=== PATIENT | male | born 1995 | race Caucasian/White ===

== ENCOUNTER 2019-07-30 09:12 | Emergency (ER) | payer BC ==
[~2019-07-30] VITALS: Ht 172.7 cm; Wt 83.9 kg
[2019-07-30] MEDS ORDERED: NORCO 5-325 TA1 EAC1 PO (09:53)
[2019-07-30] MEDS ORDERED: ERYTHROMYCIN E3.5 G3 OPHTHALMIC (09:53)
[2019-07-30 09:54] VITALS: BP 106/79
== END 2019-07-30 09:54 | disposition home or self-care (01) ==
LOC: M.ERS 09:12
DX: T15.91XA Foreign body on external eye, part unspecified, right eye, initial encounter (principal); X58.XXXA Exposure to other specified factors, initial encounter; Y93.89 Activity, other specified; Y92.89 Other specified places as the place of occurrence of the external cause; Y99.8 Other external cause status